=== PATIENT | female | born 1940 | race Caucasian/White ===

== ENCOUNTER 2018-08-05 06:22 | Inpatient (IN) | payer MEDICARE, OTHER ==
[2018-08-05] MEDS ORDERED: Lidocaine 4% (Laryng-O-Jet) Kit MM ONE (07:16)
[2018-08-05] MEDS ORDERED: Rocuronium 10 mg/ml (5 ml) ONE (07:16)
[2018-08-05] MEDS ORDERED: Lidocaine 1% 5ml Abboject ONE (07:16)
[2018-08-05] MEDS ORDERED: Neostigmine 1:1000 (1 mg/ml) Inj ONE (07:16)
[2018-08-05] MEDS ORDERED: Succinylcholine Chloride 20 mg/ml Syr (5 ml) IV ONE (07:16)
[2018-08-05] MEDS ORDERED: Midazolam 2 MG/2 ML VIAL ONE (07:16)
--- NOTE | 2018-08-05 07:21 | CP.PCM.HP ---
<Pearl Abraham - Last Filed: 08/05/18 07:56> History of Present Illness - History of Present Illness History of Present Illness: CC: Right knee pain 78 year old female patient, with PMHx of DM, HTN, HLD, osteoporosis seen and evaluated in [facility] for L knee DJD. Patient is going to OR today with Dr. Velasco for right total knee replacement. Patient states that she has had knee pain for several years, bilaterally. However, more recently her pain has increased significantly to the right knee causing her pain with ambulation and going up and down the stairs. She has remained NPO since last night and admits stopping her ASA two days ago. Denies nausea/vomiting/fever/shortness of breath/chest pain. PMD: Bakari Seals MD PMHx: DM, HTN, HLD, osteoporosis PSHx: L cataract surgery FHx: Father: CAD, DM, HTN SHx: Denies tobacco use, denies alcohol use ALL: NKDA Present on Admission - Present on Admission Any Indicators Present on Admission: No History of DVT/PE: No Review of Systems - Constitutional Constitutional: As Per HPI. absent: Chills, Headache - EENT Eyes: As Per HPI - Cardiovascular Cardiovascular: As Per HPI. absent: Chest Pain Additional comments: mild pitting edema to b/l lower extremities - Respiratory Respiratory: As Per HPI. absent: Cough, Dyspnea - Gastrointestinal Gastrointestinal: absent: Abdominal Pain, Nausea, Vomiting - Musculoskeletal Musculoskeletal: Joint Swelling, Limited Range of Motion, Stiffness Additional comments: Pain with ambulation of b/l knees - Integumentary Integumentary: As Per HPI - Neurological Neurological: As Per HPI - Hematologic/Lymphatic Hematologic: absent: Easy Bleeding, Easy Bruising Past Patient History - Past Medical History & Family History Past Medical History?: Yes - Past Social History Smoking Status: Never Smoked Alcohol: None - CARDIAC Hx Cardiac Disorders: Yes Hx Hypercholesterolemia: Yes Hx Hypertension: Yes - PULMONARY Hx Respiratory Disorders: No - NEUROLOGICAL Hx Neurological Disorder: No - HEENT Hx HEENT Problems: Yes Hx Cataracts: Yes (L eye) - ENDOCRINE/METABOLIC Hx Endocrine Disorders: Yes Hx Diabetes Mellitus Type 2: Yes - HEMATOLOGICAL/ONCOLOGICAL Hx Blood Transfusions: No - MUSCULOSKELETAL/RHEUMATOLOGICAL Hx Musculoskeletal Disorders: Yes Hx Arthritis: Yes Hx Falls: No - GASTROINTESTINAL Hx Gastrointestinal Disorders: No - GENITOURINARY/GYNECOLOGICAL Hx Genitourinary Disorders: No - PSYCHIATRIC Hx Emotional Abuse: No Hx Physical Abuse: No - SURGICAL HISTORY Hx Surgeries: Yes Hx Cataract Extraction: Yes (L eye) - ANESTHESIA Hx Anesthesia: Yes Hx Anesthesia Reactions: No Hx Malignant Hyperthermia: No Has any member of the family had a problem w/ anesthesia?: No Meds Allergies/Adverse Reactions: Allergies Allergy/AdvReac Type Severity Reaction Status Date / Time No Known Allergies Allergy Verified 08/05/18 06:40 Physical Exam - Constitutional Appears: Non-toxic, No Acute Distress - Head Exam Head Exam: ATRAUMATIC, NORMOCEPHALIC - Eye Exam Eye Exam: Normal appearance Pupil Exam: NORMAL ACCOMODATION - ENT Exam ENT Exam: Mucous Membranes Moist - Respiratory Exam Respiratory Exam: Clear to Auscultation Bilateral, NORMAL BREATHING PATTERN - Cardiovascular Exam Cardiovascular Exam: REGULAR RHYTHM - GI/Abdominal Exam GI & Abdominal Exam: Normal Bowel Sounds, Soft - Extremities Exam Additional comments: Pain with palpation of R knee Pain with AROM and PROM of knees b/l - Back Exam Back exam: NORMAL INSPECTION - Neurological Exam Neurological exam: Alert, Oriented x3 - Psychiatric Exam Psychiatric exam: Normal Affect, Normal Mood - Skin Skin Exam: Warm Results - Vital Signs Recent Vital Signs: Last Vital Signs Temp 97.8 F 08/05/18 06:56 Pulse 72 08/05/18 07:07 Resp 18 08/05/18 06:56 BP 158/88 H 08/05/18 06:56 Pulse Ox 99 08/05/18 06:56 - Labs Result Diagrams: 08/05/18 07:20 Assessment & Plan - Assessment and Plan (Free Text) Assessment: 78 year old female patient, with PMHx of DM, HTN, HLD, osteoporosis seen and evaluated in [facility] for L total knee replacement with Dr. Velasco Plan: 1. R knee osteoarthritis - Patient plan for OR today with Dr. Velasco for R TKR - Patient is medically optimized for surgery - Medical clearance from PMD in chart- CBC, CXR, EKG reviewed - NPO status confirmed - PT consult 2. DMII - Chronic - ACHS - Sliding scale 3. HTN - Chronic - C/w home meds after surgery 4. HLD - Chronic 5. DVT prophylaxis - SCDs - Date & Time Date: 08/05/18 Time: 07:42 <Chika Palmer - Last Filed: 08/05/18 15:06> Results - Vital Signs Recent Vital Signs: Last Vital Signs Temp 97.4 F L 08/05/18 13:50 Pulse 84 08/05/18 13:50 Resp 17 08/05/18 13:50 BP 116/77 08/05/18 13:50 Pulse Ox 100 08/05/18 13:50 - Labs Result Diagrams: 08/05/18 07:20 Labs: Laboratory Results - last 24 hr 08/05/18 08/05/18 08/05/18 07:15 07:20 07:55 WBC 6.3 RBC 4.43 Hgb 13.0 Hct 38.9 MCV 88.0 MCH 29.3 MCHC 33.3 RDW 13.5 Plt Count 269 MPV 9.6 Neut % (Auto) 65.9 Lymph % (Auto) 24.3 Sargent % (Auto) 7.7 Eos % (Auto) 1.4 Baso % (Auto) 0.7 Neut # (Auto) 4.1 Lymph # (Auto) 1.5 Sargent # (Auto) 0.5 Eos # (Auto) 0.1 Baso # (Auto) 0.0 POC Glucose (mg/dL) Blood Type O POSITIVE Blood Type Confirm O POSITIVE Antibody Screen Negative Crossmatch See Detail BBK History Checked No verified bt 08/05/18 11:57 WBC RBC Hgb Hct MCV MCH MCHC RDW Plt Count MPV Neut % (Auto) Lymph % (Auto) Sargent % (Auto) Eos % (Auto) Baso % (Auto) Neut # (Auto) Lymph # (Auto) Sargent # (Auto) Eos # (Auto) Baso # (Auto) POC Glucose (mg/dL) 139 H Blood Type Blood Type Confirm Antibody Screen Crossmatch BBK History Checked Attending/Attestation - Attestation I have personally seen and examined this patient.: Yes I have fully participated in the care of the patient.: Yes I have reviewed all pertinent clinical information: Yes Notes (Text): Severe Primary Osteoarthritis Right Knee, failed conservative management DM type II HTN - plan for TKR by Dr Velasco - pre op eval done by pt's PMD and pt optimized for the surgery -cont home DM and HTN meds post op -DVT proph - PT/OT consult post op
[2018-08-05] MEDS ORDERED: Bupivacaine 0.25%-Epinephrine 1:200,000 (30 ml) Inj ONE (07:22)
--- NOTE | 2018-08-05 07:44 | CP.PCM.CON ---
History of Present Illness - History of Present Illness History of Present Illness: Orthopedic consultation Dr. Velasco 78F complains of right knee pain due to DJD failed conservative mgmt and elected for TKR. PMH: HTN, DM, chol PSH: Left eye surgery NKDA no hx CAD, CVA, seizure, stents, DVT, PE Review of Systems - Review of Systems All systems: reviewed and no additional remarkable complaints except - Musculoskeletal Musculoskeletal: As Per HPI Past Patient History - Past Medical History & Family History Past Medical History?: Yes Past Family History: Reviewed and not pertinent - Past Social History Smoking Status: Never Smoked - CARDIAC Hx Cardiac Disorders: Yes Hx Hypercholesterolemia: Yes Hx Hypertension: Yes - PULMONARY Hx Respiratory Disorders: No - NEUROLOGICAL Hx Neurological Disorder: No - HEENT Hx HEENT Problems: Yes Hx Cataracts: Yes (L eye) - ENDOCRINE/METABOLIC Hx Endocrine Disorders: Yes Hx Diabetes Mellitus Type 2: Yes - HEMATOLOGICAL/ONCOLOGICAL Hx Blood Transfusions: No - MUSCULOSKELETAL/RHEUMATOLOGICAL Hx Musculoskeletal Disorders: Yes Hx Arthritis: Yes Hx Falls: No - GASTROINTESTINAL Hx Gastrointestinal Disorders: No - GENITOURINARY/GYNECOLOGICAL Hx Genitourinary Disorders: No - PSYCHIATRIC Hx Emotional Abuse: No Hx Physical Abuse: No - SURGICAL HISTORY Hx Surgeries: Yes Hx Cataract Extraction: Yes (L eye) - ANESTHESIA Hx Anesthesia: Yes Hx Anesthesia Reactions: No Hx Malignant Hyperthermia: No Has any member of the family had a problem w/ anesthesia?: No Meds Allergies/Adverse Reactions: Allergies Allergy/AdvReac Type Severity Reaction Status Date / Time No Known Allergies Allergy Verified 08/05/18 06:40 Physical Exam - Constitutional Appears: Well, No Acute Distress - Head Exam Additional comments: vitiligo noted widespread - Respiratory Exam Respiratory Exam: NORMAL BREATHING PATTERN - Cardiovascular Exam Additional comments: medical h&P on chart, reviewed - Expanded Lower Extremities Exam Right Knee exam: tenderness, normal inspection (mild effusion, no erythema, calves soft NT neg homans +DP/PT pulses) Results - Vital Signs Recent Vital Signs: Last Vital Signs Temp 97.8 F 08/05/18 06:56 Pulse 72 08/05/18 07:07 Resp 18 08/05/18 06:56 BP 158/88 H 08/05/18 06:56 Pulse Ox 99 08/05/18 06:56 - Impressions Impression: labs on chart, reviewed Assessment & Plan (1) Primary osteoarthritis of right knee Assessment and Plan: NPO T&S Status: Acute (2) HTN (hypertension) Assessment and Plan: cont home meds Status: Chronic (3) Diabetes mellitus Assessment and Plan: accucheck, cont home meds Status: Chronic
[2018-08-05] MEDS ORDERED: Glucagon Recombinant 1 mg Inj IM PRN (07:47)
[2018-08-05] MEDS ORDERED: Dextrose 50% SYRINGE Inj (50 ml) IV PRN (07:47)
[2018-08-05 07:48] LABS: BASO % 0.7 % (0.0-2.0); EOS # 0.1 K/uL (0.0-0.7); EOS % 1.4 % (0.0-4.0); LYMPH # 1.5 K/uL (1.0-4.3); LYMPH % 24.3 % (20.0-40.0); MEAN CORPUSCULAR HEMOGLOBIN 29.3 pg (27.0-31.0); MEAN CORPUSCULAR HGB CONC 33.3 g/dL (33.0-37.0); MEAN PLATELET VOLUME 9.6 fl (7.2-11.7); MONO # 0.5 K/uL (0.0-0.8); MONO % 7.7 % (0.0-10.0); NEUT # 4.1 K/uL (1.8-7.0); NEUT % 65.9 % (50.0-75.0); NRBC % 0.1 % (0.0-0.0); RBC 4.43 Mil/uL (3.80-5.20); RED CELL DISTRIBUTION WIDTH 13.5 % (11.5-14.5); WHITE BLOOD COUNT 6.3 K/uL (4.8-10.8)
[2018-08-05] MEDS ORDERED: Morphine 4 MG/ML VIAL IVP PRN (07:53)
[2018-08-05] MEDS ORDERED: Bisacodyl 5mg EC Tab PO PRN (07:53)
[2018-08-05] MEDS ORDERED: Tranexamic Acid 1,000 MG in Sodium Chloride 0.9% 100 ML IVPB ONE (08:00)
[2018-08-05] MEDS ORDERED: Absorbable Gelatin Sponge Size 12-7 ONE (08:19)
[2018-08-05] MEDS ORDERED: Bacitracin Ointment 30 GM TUBE ONE (08:19)
[2018-08-05] MEDS ORDERED: Thrombin Topical 5,000 Int Units Spray Kit ONE (08:19)
[2018-08-05] MEDS ORDERED: Ropivacaine 0.5% 30ML IV ONE (08:44)
[2018-08-05] MEDS ORDERED: Propofol 10 mg/ml Inj (20 ML) ONE (08:46)
[2018-08-05] MEDS ORDERED: Tranexamic Acid 100 mg/ml IV ONE (09:25)
[2018-08-05] MEDS ORDERED: ePHEDrine 50 mg/ml Inj ONE (09:47)
--- NOTE | 2018-08-05 10:07 | PCM.ANESB3 ---
Femoral Nerve Block - Femoral Nerve Block Date of Procedure: 08/05/18 Anesthesiologist: Cam Gaona Pre-Procedure Diagnosis: Right knee arthritis Post-Procedure Diagnosis: Same Procedure Performed: Femoral Nerve Block Right - Procedure Femoral Nerve Block: The procedure was explained to the patient that it is for the post-operative pain management. Consent was obtained after a thorough discussion with the patient regarding the benefits and possible complications of local anesthetic block of the femoral nerve at the inguinal crease area. The patient was brought to the operating room and standard monitors were applied. Time-out was held with the circulating nurse to confirm the correct surgery and the appropriate block. After inducing general endotracheal anesthesia, patient was placed in supine position with fully extended lower extremities and the ___Right groin exposed. The femoral artery was then carefully palpated. The ultrasound transducer was then applied to this area in the transverse plane and the femoral nerve was visualized lateral to the femoral artery and underneath the fascia iliaca. After thorough identification, the inguinal crease area was prepped with Chloraprep three times. At this point, a #22 gauge Stimuplex 2-inch needle was inserted immediately lateral to the femoral artery pulse at the inguinal crease and advanced perpendicularly. The needle was inserted to the ultrasound transducer in-plane towards the femoral nerve in a [id number] direction. Needle advancement was performed carefully under direct ultrasound visualization. After negative aspiration, __5___cc of __0.25___% ____bupivacaine with [id number] epinephrine was injected and this was followed with __15____ cc of the same local anesthetic. Under ultrasound guidance the local anesthetics were observed spreading below fascia iliaca and around the femoral nerve. The needle was removed intact and sterile dressing was applied. The patient had stable vital signs, was conscious and in no apparent distress. The patient tolerated the femoral nerve block well with stable vital signs and was prepared for subsequent surgery.
--- NOTE | 2018-08-05 10:08 | PCM.ANESB2 ---
Popliteal Nerve Block - Popliteal Nerve Block Date of Procedure: 08/05/18 Anesthesiologist: Cam Gaona Pre-Procedure Diagnosis: Right knee arthritis Post-Procedure Diagnosis: Same Procedure Performed: Popliteal Nerve Block Right - Procedure Popliteal Nerve Block: This procedure was explained to the patient that it is for post-operative pain management. Consent was obtained after a thorough discussion with the patient regarding the benefits and possible complications of local anesthetic block of the sciatic nerve at the popliteal level. The patient was brought to the opera tin room and standard monitors are applied. Time-out was held with the circulating nurse to confirm the correct surgery and the appropriate block. After inducing general endotracheal anesthesia, patient's operative leg was gently raised and supported and the groove in between the biceps femoris and vastus lateralis muscles was carefully palpated. The skin approximately 8cm above the popliteal crease was then marked. The ultrasound transducer was then applied to the posterior thigh approximately 8cm above the popliteal crease in the transverse plane and the sciatic nerve before its division was visualized lateral to the popliteal artery and in between the bicep femoris and semimembranosus/semitendinosus muscles. After identification, the lateral portion of the thigh was prepped with Chloraprep solution three times. At this point, a # 21 gauge Stimuplex insulated 4 inch needle was inserted into pre-marked area and advanced in a perpendicular direction. The needle was inserted above the ultrasound transducer in-plane towards the sciatic nerve in a [id number] direction. Needle advancement was performed carefully under direct ultrasound visualization. After repeated negative aspiration, __20___cc of _0.25__ % bupivacaine with [id number] epinephrine was injected in 5cc aliquots. Under ultrasound guidance the local anesthetics were observed surrounding sciatic nerve . The needle was removed intact and sterile dressing was applied. The patient tolerated the popliteal nerve block well with stable vital signs and was subsequently prepared for the surgery.
[2018-08-05] MEDS ORDERED: Bacitracin OINT 15GM TOP ONE (10:26)
[2018-08-05] MEDS ORDERED: Esmolol 100 mg/10ml Inj IV ONE (11:27)
--- NOTE | 2018-08-05 11:41 | PCM.SURG1 ---
Surgeon's Initial Post Op Note - Surgeon's Notes Surgeon: Krista Manufacturing Quality Manager: 1st assist Mary Lou Curry PA-C/ 2nd assist JC Fregoso Type of Anesthesia: General Endo Anesthesia Administered By: DR Anna Basilio Pre-Operative Diagnosis: TricopmartmentalO/A R knee. bicomaprtmental synovitis ( anterior and posterior)\. posterior mcapsular contracture. lateral patella cointractuire Operative Findings: as above Post-Operative Diagnosis: as above Operation Performed: R TKLR. p[osterior capsular release. lateralpatgella release. anterior and posterior synovitis Specimen/Specimens Removed: synvoium/cartilage/bone Estimated Blood Loss: EBL {In ML}: 90 Blood Products Given: N/A Drains Used: Hemovac Post-Op Condition: Fair Date of Surgery/Procedure: 08/05/18 Time of Surgery/Procedure: 09:45 (time in room/anaesthesia indcution time 8:45)
[2018-08-05] MEDS ORDERED: HYDROmorphone 0.5 mg/0.5 ml ISec IVP PRN (11:56)
[2018-08-05] MEDS: Sodium Chloride 0.9% 1,000 ML IV SCH ×2 (13:52→21:00)
--- NOTE | 2018-08-05 16:41 | RAD ---
Date of service: 08/05/2018 PROCEDURE: Right Knee Radiographs. HISTORY: s/p R TKA COMPARISON: None. FINDINGS: BONES: Status post total knee replacement. No acute fracture. JOINTS: As above JOINT EFFUSION: Postoperative changes in anterior soft tissues. Surgical yordy in the anterior midline soft tissues. Surgical drain present in the suprapatellar region. OTHER FINDINGS: None. IMPRESSION: Status post right total knee replacement.
[2018-08-05] MEDS: Insulin Regular 100 units/ml SC SCH ×3 (16:54→22:18)
[2018-08-05] MEDS: ceFAZolin 2 GM in Sodium Chloride 0.9% 100 ML IVPB SCH (19:36)
[2018-08-06] MEDS: ceFAZolin 2 GM in Sodium Chloride 0.9% 100 ML IVPB SCH (00:39)
[2018-08-06 06:34] LABS: HEMOGLOBIN 11.7 g/dL (12.0-16.0); MEAN CELL VOLUME 88.5 fl (81.0-99.0); MEAN CORPUSCULAR HEMOGLOBIN 29.7 pg (27.0-31.0); MEAN CORPUSCULAR HGB CONC 33.6 g/dL (33.0-37.0); RBC 3.94 Mil/uL (3.80-5.20); RED CELL DISTRIBUTION WIDTH 13.4 % (11.5-14.5); WHITE BLOOD COUNT 9.7 K/uL (4.8-10.8)
[2018-08-06 06:47] LABS: BLOOD UREA NITROGEN 11 mg/dl (7-17); CALCIUM 8.6 mg/dL (8.4-10.2); GFR NON-AFRICAN AMERICAN > 60
--- NOTE | 2018-08-06 09:25 | CP.PCM.PN ---
Subjective - Date & Time of Evaluation Date of Evaluation: 08/06/18 Time of Evaluation: 09:22 - Subjective Subjective: Patient complaining of severe pain in her knee, even with COMMUNITY SERVICES COORDINATOR. Denies CP/SOB/dizziness/numbness/tingling. Objective - Vital Signs/Intake and Output Vital Signs (last 24 hours): Temp Pulse Resp BP Pulse Ox 97.4 F L 75 20 131/72 95 08/06/18 08:07 08/06/18 08:07 08/06/18 08:07 08/06/18 08:07 08/06/18 08:07 Intake and Output: 08/06/18 08/06/18 06:59 18:59 Intake Total 1110 Output Total 5 Balance 1105 - Medications Medications: Current Medications Acetaminophen (Tylenol 325mg Tab) 650 mg PO Q4 PRN PRN Reason: Fever >100.4 F Bisacodyl (Dulcolax) 10 mg PO HS PRN PRN Reason: Constipation Dextrose (Dextrose 50% Inj) 0 ml IV STAT PRN; Protocol PRN Reason: Hypoglycemia Protocol Dextrose (Glutose 15) 0 gm PO ONCE PRN; Protocol PRN Reason: Hypoglycemia Protocol Docusate Sodium (Colace) 100 mg PO BID [facility] Last Admin: 08/05/18 19:18 Dose: 100 mg Enoxaparin Sodium (Lovenox) 40 mg SC DAILY [facility]; Protocol Glucagon (Glucagen Diagnostic Kit) 0 mg IM STAT PRN; Protocol PRN Reason: Hypoglycemia Protocol Hydromorphone HCl (Dilaudid 0.2 Mg/Ml Combination Window Installer) 6 mg IV PRN PRN; Protocol PRN Reason: Pain, severe (8-10) Last Admin: 08/05/18 13:20 Dose: 0 mg Insulin Human Regular (Humulin R) 0 units SC [facility]; Protocol Last Admin: 08/05/18 22:18 Dose: Not Given Ketorolac Tromethamine (Toradol) 30 mg IVP Q6 [facility] Stop: 08/08/18 04:01 Metformin HCl (Glucophage) 500 mg PO BID [facility] Morphine Sulfate (Morphine) 2 mg IVP Q4 PRN PRN Reason: Pain, severe (8-10) Ondansetron HCl (Zofran Inj) 4 mg IVP Q6 PRN PRN Reason: Nausea/Vomiting Oxycodone HCl (Oxycodone Immediate Release Tab) 5 mg PO Q4H PRN PRN Reason: Pain, moderate (4-7) Pravastatin Sodium (Pravachol) 20 mg PO HS [facility] - Labs Labs: 08/06/18 05:50 08/06/18 05:50 - Extremities Exam Additional comments: hemovac 40 overnight, removed +ROM ankle/toes, sensation intact +CP/PT pulses, calves soft NT neghomans Assessment and Plan (1) Primary osteoarthritis of right knee Assessment & Plan: PT/OT wean COMMUNITY SERVICES COORDINATOR toradol around the clock, tylenol standing d/c'd VTE proph d/c planning d/w Dr. Lowe, agrees with above Status: Acute (2) HTN (hypertension) Status: Chronic (3) Diabetes mellitus Status: Chronic (4) Acute blood loss anemia Status: Acute
--- NOTE | 2018-08-06 10:38 | CP.PCM.CON ---
History of Present Illness - History of Present Illness History of Present Illness: THE PATIENT IS A 78 YEAR OLD FEMALE WHO HAD A RIGHT TKR FOR OA YESTERDAY BY DR CHEEK AND I HAVE BEEN ASKED TO SEE HER. SHE ALSO HAS A HISTORY OF HYPERTENSION, HYPERLIPIDEMIA AND TYPE 2 DM. SHE DENIES ANY HISTORY OF CAD, CHEST PAIN OR SOB. NOTE: THE PATIENT AND SON DENIES THAT SHE EVER HAD ANY STENT INSERTION OF ANY KIND. Past Patient History - Past Medical History & Family History Past Medical History?: Yes Past Family History: Reviewed and not pertinent - Past Social History Smoking Status: Never Smoked - CARDIAC Hx Cardiac Disorders: Yes Hx Hypercholesterolemia: Yes Hx Hypertension: Yes - PULMONARY Hx Respiratory Disorders: No - NEUROLOGICAL Hx Neurological Disorder: No - HEENT Hx HEENT Problems: Yes Hx Cataracts: Yes (L eye) - ENDOCRINE/METABOLIC Hx Endocrine Disorders: Yes Hx Diabetes Mellitus Type 2: Yes - HEMATOLOGICAL/ONCOLOGICAL Hx Blood Transfusions: No - MUSCULOSKELETAL/RHEUMATOLOGICAL Hx Musculoskeletal Disorders: Yes Hx Arthritis: Yes Hx Falls: No - GASTROINTESTINAL Hx Gastrointestinal Disorders: No - GENITOURINARY/GYNECOLOGICAL Hx Genitourinary Disorders: No - PSYCHIATRIC Hx Emotional Abuse: No Hx Physical Abuse: No - SURGICAL HISTORY Hx Surgeries: Yes Hx Cataract Extraction: Yes (L eye) - ANESTHESIA Hx Anesthesia: Yes Hx Anesthesia Reactions: No Hx Malignant Hyperthermia: No Has any member of the family had a problem w/ anesthesia?: No Meds Allergies/Adverse Reactions: Allergies Allergy/AdvReac Type Severity Reaction Status Date / Time No Known Allergies Allergy Verified 08/05/18 06:40 - Medications Medications: Current Medications Acetaminophen (Tylenol 325mg Tab) 650 mg PO Q4 PRN PRN Reason: Fever >100.4 F Bisacodyl (Dulcolax) 10 mg PO HS PRN PRN Reason: Constipation Dextrose (Dextrose 50% Inj) 0 ml IV STAT PRN; Protocol PRN Reason: Hypoglycemia Protocol Dextrose (Glutose 15) 0 gm PO ONCE PRN; Protocol PRN Reason: Hypoglycemia Protocol Docusate Sodium (Colace) 100 mg PO BID [facility] Last Admin: 08/05/18 19:18 Dose: 100 mg Enoxaparin Sodium (Lovenox) 40 mg SC DAILY [facility]; Protocol Glucagon (Glucagen Diagnostic Kit) 0 mg IM STAT PRN; Protocol PRN Reason: Hypoglycemia Protocol Hydromorphone HCl (Dilaudid 0.2 Mg/Ml Drawbench Operator) 6 mg IV PRN PRN; Protocol PRN Reason: Pain, severe (8-10) Last Admin: 08/05/18 13:20 Dose: 0 mg Insulin Human Regular (Humulin R) 0 units SC [facility]; Protocol Last Admin: 08/05/18 22:18 Dose: Not Given Ketorolac Tromethamine (Toradol) 30 mg IVP Q6 [facility] Stop: 08/08/18 04:01 Metformin HCl (Glucophage) 500 mg PO BID [facility] Morphine Sulfate (Morphine) 2 mg IVP Q4 PRN PRN Reason: Pain, severe (8-10) Ondansetron HCl (Zofran Inj) 4 mg IVP Q6 PRN PRN Reason: Nausea/Vomiting Oxycodone HCl (Oxycodone Immediate Release Tab) 5 mg PO Q4H PRN PRN Reason: Pain, moderate (4-7) Pravastatin Sodium (Pravachol) 20 mg PO HS [facility] Physical Exam - Respiratory Exam Respiratory Exam: Clear to Auscultation Bilateral - Cardiovascular Exam Cardiovascular Exam: REGULAR RHYTHM, +S1, +S2 - Additional Findings Additional findings: PAT EKG SHOWS NSR OR NOTES REVIEWED Results - Vital Signs Recent Vital Signs: Last Vital Signs Temp 97.4 F L 08/06/18 08:07 Pulse 75 08/06/18 08:07 Resp 20 08/06/18 08:07 BP 131/72 08/06/18 08:07 Pulse Ox 95 08/06/18 08:07 - Labs Result Diagrams: 08/07/18 06:50 08/06/18 05:50 Labs: Laboratory Results - last 24 hr 08/05/18 08/05/18 08/05/18 07:24 11:57 15:40 WBC RBC Hgb Hct MCV MCH MCHC RDW Plt Count Sodium Potassium Chloride Carbon Dioxide Anion Gap BUN Creatinine Est GFR ( Amer) Est GFR (Non-Af Amer) POC Glucose (mg/dL) 121 H 139 H 103 Random Glucose Calcium 08/05/18 08/05/18 08/06/18 16:53 21:33 05:01 WBC RBC Hgb Hct MCV MCH MCHC RDW Plt Count Sodium Potassium Chloride Carbon Dioxide Anion Gap BUN Creatinine Est GFR ( Amer) Est GFR (Non-Af Amer) POC Glucose (mg/dL) 99 139 H 145 H Random Glucose Calcium 08/06/18 08/06/18 05:50 05:50 WBC 9.7 D RBC 3.94 Hgb 11.7 L Hct 34.9 MCV 88.5 MCH 29.7 MCHC 33.6 RDW 13.4 Plt Count 251 Sodium 135 Potassium 3.9 Chloride 96 L Carbon Dioxide 27 Anion Gap 16 BUN 11 Creatinine 0.6 L Est GFR ( Amer) > 60 Est GFR (Non-Af Amer) > 60 POC Glucose (mg/dL) Random Glucose 157 H Calcium 8.6 Assessment & Plan - Assessment and Plan (Free Text) Assessment: RIGHT TKR HYPERTENSION HYPERLIPIDEMIA DM Plan: CONTINUE LOVENOX, METFORMEN AND PRAVACHOL
[2018-08-06] MEDS: Insulin Regular 100 units/ml SC SCH ×4 (10:42→21:56)
--- NOTE | 2018-08-06 12:14 | CP.PCM.PN ---
<Pearl Abraham - Last Filed: 08/06/18 13:20> Subjective - Date & Time of Evaluation Date of Evaluation: 08/06/18 Time of Evaluation: 12:14 - Subjective Subjective: Patient seen and evaluated this morning. Patient resting comfortably and in NAD. Patient reports 5/10 pain to the R knee at this time, however pain well controlled with pain medications. No acute events overnight. Denies nausea/vomiting/fever/shortness of breath/chest pain. Objective - Vital Signs/Intake and Output Vital Signs (last 24 hours): Temp Pulse Resp BP Pulse Ox 97.4 F L 75 20 131/72 95 08/06/18 08:07 08/06/18 08:07 08/06/18 08:07 08/06/18 08:07 08/06/18 08:07 Intake and Output: 08/06/18 08/06/18 06:59 18:59 Intake Total 1110 Output Total 5 Balance 1105 - Medications Medications: Current Medications Acetaminophen (Tylenol 325mg Tab) 650 mg PO Q4 PRN PRN Reason: Fever >100.4 F Bisacodyl (Dulcolax) 10 mg PO HS PRN PRN Reason: Constipation Dextrose (Dextrose 50% Inj) 0 ml IV STAT PRN; Protocol PRN Reason: Hypoglycemia Protocol Dextrose (Glutose 15) 0 gm PO ONCE PRN; Protocol PRN Reason: Hypoglycemia Protocol Docusate Sodium (Colace) 100 mg PO BID [facility] Last Admin: 08/06/18 10:40 Dose: 100 mg Enoxaparin Sodium (Lovenox) 40 mg SC DAILY [facility]; Protocol Glucagon (Glucagen Diagnostic Kit) 0 mg IM STAT PRN; Protocol PRN Reason: Hypoglycemia Protocol Hydromorphone HCl (Dilaudid 0.2 Mg/Ml Special Needs Tutor) 6 mg IV PRN PRN; Protocol PRN Reason: Pain, severe (8-10) Last Admin: 08/05/18 13:20 Dose: 0 mg Insulin Human Regular (Humulin R) 0 units SC [facility]; Protocol Last Admin: 08/06/18 10:42 Dose: Not Given Ketorolac Tromethamine (Toradol) 30 mg IVP Q6 [facility] Stop: 08/08/18 04:01 Last Admin: 08/06/18 10:50 Dose: 30 mg Metformin HCl (Glucophage) 500 mg PO BID [facility] Last Admin: 08/06/18 10:41 Dose: 500 mg Morphine Sulfate (Morphine) 2 mg IVP Q4 PRN PRN Reason: Pain, severe (8-10) Ondansetron HCl (Zofran Inj) 4 mg IVP Q6 PRN PRN Reason: Nausea/Vomiting Oxycodone HCl (Oxycodone Immediate Release Tab) 5 mg PO Q4H PRN PRN Reason: Pain, moderate (4-7) Pravastatin Sodium (Pravachol) 20 mg PO HS [facility] - Labs Labs: 08/06/18 05:50 08/06/18 05:50 - Constitutional Appears: Non-toxic, No Acute Distress - Head Exam Head Exam: ATRAUMATIC, NORMOCEPHALIC - Eye Exam Eye Exam: Normal appearance - Respiratory Exam Respiratory Exam: Clear to Ausculation Bilateral, NORMAL BREATHING PATTERN - Cardiovascular Exam Cardiovascular Exam: REGULAR RHYTHM - GI/Abdominal Exam GI & Abdominal Exam: Soft, Normal Bowel Sounds - Extremities Exam Additional comments: R knee immobilizer in place - Back Exam Back Exam: NORMAL INSPECTION - Neurological Exam Neurological Exam: Alert, Awake, Oriented x3 Assessment and Plan - Assessment and Plan (Free Text) Assessment: 78 year old female patient, with PMHx of DM, HTN, HLD, osteoporosis admitted for L total knee replacement with Dr. Velasco Plan: 1. R knee osteoarthritis - POD#[address] Velasco - C/w pain management, percocet 5/325 - C/w incentive spirometer - PT/OT consult, reccs appreciated 2. DMII - Chronic - ACHS - Sliding scale 3. HTN - Chronic - C/w home meds after physical therapy 4. HLD - Chronic - C/w home med, pravastatin 5. DVT prophylaxis - SCDs - Lovenox 40mg SC 6. Code Status - Full code - Surrogate decision maker, son Nael <PalmerChika - Last Filed: 08/06/18 16:15> Objective - Vital Signs/Intake and Output Vital Signs (last 24 hours): Temp Pulse Resp BP Pulse Ox 97.4 F L 74 20 131/72 94 L 08/06/18 08:07 08/06/18 13:30 08/06/18 08:07 08/06/18 08:07 08/06/18 13:30 Intake and Output: 08/06/18 08/06/18 06:59 18:59 Intake Total 1110 Output Total 5 Balance 1105 - Medications Medications: Current Medications Acetaminophen (Tylenol 325mg Tab) 650 mg PO Q4 PRN PRN Reason: Fever >100.4 F Bisacodyl (Dulcolax) 10 mg PO HS PRN PRN Reason: Constipation Dextrose (Dextrose 50% Inj) 0 ml IV STAT PRN; Protocol PRN Reason: Hypoglycemia Protocol Dextrose (Glutose 15) 0 gm PO ONCE PRN; Protocol PRN Reason: Hypoglycemia Protocol Docusate Sodium (Colace) 100 mg PO BID [facility] Last Admin: 08/06/18 10:40 Dose: 100 mg Enoxaparin Sodium (Lovenox) 40 mg SC DAILY [facility]; Protocol Glucagon (Glucagen Diagnostic Kit) 0 mg IM STAT PRN; Protocol PRN Reason: Hypoglycemia Protocol Sodium Chloride (Sodium Chloride 0.9%) 250 mls @ 250 mls/hr IV .Q1H [facility] Stop: 08/07/18 12:13 Insulin Human Regular (Humulin R) 0 units SC ACHS [facility]; Protocol Last Admin: 08/06/18 13:28 Dose: 1 unit Ketorolac Tromethamine (Toradol) 30 mg IVP Q6 [facility] Stop: 08/08/18 04:01 Last Admin: 08/06/18 16:08 Dose: 30 mg Losartan Potassium (Cozaar) 100 mg PO DAILY [facility] Metformin HCl (Glucophage) 500 mg PO BID [facility] Last Admin: 08/06/18 10:41 Dose: 500 mg Metoprolol Succinate (Toprol Xl) 25 mg PO DAILY [facility] Morphine Sulfate (Morphine) 2 mg IVP Q4 PRN PRN Reason: Pain, severe (8-10) Ondansetron HCl (Zofran Inj) 4 mg IVP Q6 PRN PRN Reason: Nausea/Vomiting Oxycodone HCl (Oxycodone Immediate Release Tab) 5 mg PO Q4H PRN PRN Reason: Pain, moderate (4-7) Pravastatin Sodium (Pravachol) 20 mg PO HS [facility] - Labs Labs: 08/06/18 05:50 08/06/18 05:50 Attending/Attestation - Attestation I have personally seen and examined this patient.: Yes I have fully participated in the care of the patient.: Yes I have reviewed all pertinent clinical information, including history, physical exam and plan: Yes Notes (Text): Severe Primary Osteoarthritis Right Knee, failed conservative management s/p Right TKR DM type II HTN - Physical and Occupational therapy - SW consulted for placement ( family requesting [facility] in [place]) -Pain mgt -DVT proph w/ Lovenox - cont Metoprolol and Losartan - cont Metformin, Accucheck with coverage
[2018-08-06] MEDS ORDERED: Sodium Chloride 0.9% 250 ML IV SCH (12:15)
--- NOTE | 2018-08-06 13:48 | OP ---
PROCEDURE DATE: 08/05/2018 PREOPERATIVE DIAGNOSIS: Tricompartmental osteoarthritis of the right knee. POSTOPERATIVE DIAGNOSES: 1. Tricompartmental osteoarthritis of the right knee. 2. Synovitis, anterior and posterior. 3. Posterior capsular contracture. 4. Lateral patellar retinacular contracture. SURGEON: Noe Velasco MD STEAM HAMMER OPERATOR: Mary Lou Curry PA-C SECOND MANAGER CONTACT: ROCKY Campbell, certified registered nursing certified surgical first assistant. OPERATIVE FINDINGS: As above. ESTIMATED BLOOD LOSS: Approximately 90 mL. No blood products given. One Hemovac drain. POSTOPERATIVE CONDITION: Stable. TIME OF SURGERY: Time in the room 08:45, incision time 09:45. SPECIMENS REMOVED: Synovium, cartilage, bone. OPERATIVE INDICATION: Shobha Mena is a 78-year-old woman, who presents with severe right knee pain and restricted range of motion. The patient presents with her son. The patient has been treated with conservative management with intra-articular injection, anti-inflammatory medication and therapy. Pros, cons, risks and benefits of surgical approach were discussed. The possibility of mechanical failure, infection, thromboembolic disease, possibility of secondary or tertiary surgery was discussed. The patient could no longer withstand the discomfort. The patient is fully aware of the risks and benefits and informed consent was obtained from the mother in the presence of her son. DESCRIPTION OF PROCEDURE: After having obtained informed consent in the above fashion, after having identified side, site and procedure and a critical pause/time-out, after the satisfactory induction of the anesthetic, the patient identified as Shobha Mena in the supine position with all bony prominences well padded, the right lower extremity was prepped and free draped in the usual fashion for lower extremity surgery. The tourniquet had been applied, but was not yet inflated. After exsanguinating the limb using a 6-inch Esmarch bandage, the tourniquet which had been applied was inflated to 350 mmHg. A straight midline approach was made, 6 inches in extent. Skin incision was carried down through the skin and subcutaneous tissue. Medial arthrotomy was accomplished. The patella was everted. The knee was flexed. Dissection was carried around posteromedially to the direct head of the semimembranosus tendon. Medial and lateral meniscectomies were accomplished. Anterior and posterior cruciate ligaments were excised. The tibia was dislocated anteriorly and the initial osteotomy of the arthroplasty was accomplished on the tibial side. Computer navigation commences. The anterior strut for the [employer] computer navigation accelerometer-based was employed. The offset was determined as well as the sensor application of the accelerometer. The tibia having been exposed, the offset was registered, the medial malleolus was registered and the lateral malleolus was registered. This having been accomplished, the initial osteotomy was accomplished after varus-valgus was set to 0 degrees after computer navigation was employed and 3 degrees posterior slope. Tibial osteotomy was accomplished. Portion of the iliotibial band in the lateral aspect of the tibial plateau was released. This having been accomplished, the anterior synovectomy was accomplished. Anterior and posterior synovectomy were accomplished very carefully. There was found to be a very raging and hypertrophic synovitis. This having been accomplished, the pin was placed above the intercondylar notch. The guide pin and the distal femoral cutting guide were placed. Accelerometer was placed as well as the sensor. The hip center was identified and the distal cut was set to 0 degrees on the varus-valgus axis in 0.5 degrees of flexion. This having been accomplished, the distal cut was set to 9 mm. The distal cut was accomplished. Anterior-posterior sizing is for #4 femoral component. The 4:1 block was placed across the epicondylar axis. Anterior and posterior osteotomies were accomplished as well as the chamfer cuts. This having been accomplished, there was found be a posterior capsular contracture. The lamina claims adjudicator was placed. The posterior capsule was released. At this point, a lateral patellar retinacular release was accomplished as well. Hemostasis controlled with the Aquamant[employer]. This having been accomplished, anterior and posterior synovectomy was accomplished. Attention was turned to the tibia with guidance to rotation of the lateral aspect of the tibial condyle, mid malleolar axis and medial third of the tibial tuberosity. This having been accomplished, the proximal tibia was prepared. The femur was prepared and 10-mm polyethylene was introduced. Flexion/extension gap was measured. Attention was turned to the patella. Patellar girth was registered. The freehand patellar osteotomy was accomplished. The patella was prepared. This having been accomplished and the patellar sizing having been accomplished, the lateral patellar retinacular release was accomplished. Anterior and posterior synovectomy was accomplished. The patella having been prepared, flexion/extension balance was excellent. The patellar balance was excellent. The trochlea is reamed for the femur and the femoral component. At this point in time, the femur, tibia and patella were prepared. The #4 femoral component was cemented. The #3 tibial component was cemented. The #2 patella was cemented and 10 mm polyethylene was introduced. Flexion/extension balance was excellent. The tourniquet was deflated. Hemostasis was controlled. Blood loss was approximately 90 mL. Closures in layers with #1 Ethibond followed by #1 Vicryl, 0 Vicryl, 2-0 Vicryl and yordy for skin over an 8-inch suction Hemovac drain. A lateral patellar retinacular release had been accomplished from inside out to ensure patellar balance. Computer navigation had been accomplished in determining the attitude of the alignment. Reza Delatorre compression dressing and knee immobilizers were applied. Noe Velasco MD
[2018-08-06] MEDS: Pravastatin Sodium 20 MG TAB PO SCH (21:37)
[2018-08-07 08:49] LABS: HEMOGLOBIN 11.4 g/dL (12.0-16.0); MEAN CELL VOLUME 88.2 fl (81.0-99.0); MEAN CORPUSCULAR HEMOGLOBIN 29.6 pg (27.0-31.0); MEAN CORPUSCULAR HGB CONC 33.6 g/dL (33.0-37.0); RBC 3.85 Mil/uL (3.80-5.20); RED CELL DISTRIBUTION WIDTH 13.5 % (11.5-14.5); WHITE BLOOD COUNT 10.9 K/uL (4.8-10.8)
[2018-08-07 09:07] LABS: INR 1.2; PROTHROMBIN TIME 13.7 Seconds (9.8-13.1)
[2018-08-07 10:05] VITALS: BMI 30.5
[2018-08-07] MEDS: Metoprolol Succinate 25 mg XL Tab PO SCH (10:16)
[2018-08-07] MEDS: Insulin Regular 100 units/ml SC SCH ×4 (10:20→22:13)
[2018-08-07] MEDS: Enoxaparin 40 mg Syringe SC SCH (12:04)
--- NOTE | 2018-08-07 12:37 | CP.PCM.PN ---
Subjective - Date & Time of Evaluation Date of Evaluation: 08/07/18 Time of Evaluation: 10:00 - Subjective Subjective: Patient was seen and evaluated during PT . All chart and clinical date viewed.Care resumed She is post op day 2, doing well. Pain is controlled with pain medications. Participating with PT and tolerating CPM machine No acute issues overnight Hemodynamically stabloe, afebrile Objective - Vital Signs/Intake and Output Vital Signs (last 24 hours): Temp Pulse Resp BP Pulse Ox 98.0 F 80 22 155/71 H 93 L 08/07/18 08:05 08/07/18 10:16 08/07/18 08:05 08/07/18 10:16 08/07/18 08:05 Intake and Output: 08/07/18 08/07/18 06:59 18:59 Output Total 200 Balance -200 - Medications Medications: Current Medications Acetaminophen (Tylenol 325mg Tab) 650 mg PO Q4 PRN PRN Reason: Fever >100.4 F Bisacodyl (Dulcolax) 10 mg PO HS PRN PRN Reason: Constipation Dextrose (Dextrose 50% Inj) 0 ml IV STAT PRN; Protocol PRN Reason: Hypoglycemia Protocol Dextrose (Glutose 15) 0 gm PO ONCE PRN; Protocol PRN Reason: Hypoglycemia Protocol Docusate Sodium (Colace) 100 mg PO BID [facility] Last Admin: 08/07/18 10:15 Dose: 100 mg Enoxaparin Sodium (Lovenox) 40 mg SC DAILY [facility]; Protocol Last Admin: 08/07/18 12:04 Dose: 40 mg Glucagon (Glucagen Diagnostic Kit) 0 mg IM STAT PRN; Protocol PRN Reason: Hypoglycemia Protocol Insulin Human Regular (Humulin R) 0 units SC [facility]; Protocol Last Admin: 08/07/18 11:56 Dose: 1 unit Ketorolac Tromethamine (Toradol) 30 mg IVP Q6 [facility] Stop: 08/08/18 04:01 Last Admin: 08/07/18 10:10 Dose: 30 mg Losartan Potassium (Cozaar) 100 mg PO DAILY [facility] Last Admin: 08/07/18 10:16 Dose: 100 mg Metformin HCl (Glucophage) 500 mg PO BID [facility] Last Admin: 08/07/18 10:15 Dose: 500 mg Metoprolol Succinate (Toprol Xl) 25 mg PO DAILY [facility] Last Admin: 08/07/18 10:16 Dose: 25 mg Morphine Sulfate (Morphine) 2 mg IVP Q4 PRN PRN Reason: Pain, severe (8-10) Ondansetron HCl (Zofran Inj) 4 mg IVP Q6 PRN PRN Reason: Nausea/Vomiting Oxycodone HCl (Oxycodone Immediate Release Tab) 5 mg PO Q4H PRN PRN Reason: Pain, moderate (4-7) Pravastatin Sodium (Pravachol) 20 mg PO HS [facility] Last Admin: 08/06/18 21:37 Dose: 20 mg - Labs Labs: 08/07/18 06:50 08/06/18 05:50 PT 13.7 Seconds (9.8-13.1) H 08/07/18 07:30 INR 1.2 08/07/18 07:30 - Constitutional Appears: Non-toxic, No Acute Distress - Head Exam Head Exam: ATRAUMATIC, NORMAL INSPECTION, NORMOCEPHALIC - Eye Exam Eye Exam: EOMI, Normal appearance, PERRL Pupil Exam: NORMAL ACCOMODATION - ENT Exam ENT Exam: Mucous Membranes Moist, Normal Exam - Neck Exam Neck Exam: Full ROM, Normal Inspection - Respiratory Exam Respiratory Exam: Clear to Ausculation Bilateral, NORMAL BREATHING PATTERN. absent: Rales, Rhonchi, Wheezes, Respiratory Distress - Cardiovascular Exam Cardiovascular Exam: REGULAR RHYTHM, RRR, +S1, +S2. absent: JVD - GI/Abdominal Exam GI & Abdominal Exam: Soft, Normal Bowel Sounds. absent: Distended, Guarding, Tenderness, Rebound - Rectal Exam Rectal Exam: Deferred - Extremities Exam Extremities Exam: Full ROM, Normal Capillary Refill, Normal Inspection Additional comments: Right knee dressing and immobilizer in place - Back Exam Back Exam: NORMAL INSPECTION - Neurological Exam Neurological Exam: Alert, Awake, CN II-XII Intact, Oriented x3 - Psychiatric Exam Psychiatric exam: Normal Affect, Normal Mood - Skin Skin Exam: Dry, Intact, Normal Color, Warm Assessment and Plan - Assessment and Plan (Free Text) Assessment: 78 year old female patient, with PMHx of DM, HTN, HLD, osteoporosis admitted for L total knee replacement with Dr. Velasco . She underwent succesfull right TKR. Post op PT consulted and recommenced [facility] At present pacheco is controlled, partricipating with PT and tolerating CPM machine Waiting for [facility] placement 1. s/p right TKR post op Day 2 Pain is controlled Continue Incentive spirometry Lovenox for DVt prophylaxis Continue PT and CPM as per ortho recommendations Waiting for [facility] placement 2. DMII Chronic, controlled Continue Accuchecks, insulin coverage , Diabetic diet On Metformin 3. HTN Chronic, controlled continue metoprolol and Losartan 4. HLD Chronic on pravastatin 5. DVT prophylaxis SCDs Lovenox 40mg SC
[2018-08-07] MEDS: Pravastatin Sodium 20 MG TAB PO SCH (21:22)
[2018-08-08] MEDS: Insulin Regular 100 units/ml SC SCH ×4 (07:09→23:01)
[2018-08-08] MEDS: oxyCODONE 5 mg Immediate Release Tab PO PRN ×2 (09:18→13:36)
[2018-08-08] MEDS: Enoxaparin 40 mg Syringe SC SCH (09:18)
[2018-08-08] MEDS: Metoprolol Succinate 25 mg XL Tab PO SCH (09:19)
--- NOTE | 2018-08-08 10:43 | CP.PCM.PN ---
Subjective - Date & Time of Evaluation Date of Evaluation: 08/08/18 Time of Evaluation: 09:00 - Subjective Subjective: Patient was seen and evaluated bedside . Lying in bed in NAD. Still complains of pain to right knee No acute issues overnight Hemodynamically stable, afebrile Participating with PT and tolerating CPM machine Objective - Vital Signs/Intake and Output Vital Signs (last 24 hours): Temp Pulse Resp BP Pulse Ox 98.5 F 74 19 157/86 H 98 08/08/18 08:45 08/08/18 09:19 08/08/18 08:45 08/08/18 09:19 08/08/18 08:45 - Medications Medications: Current Medications Acetaminophen (Tylenol 325mg Tab) 650 mg PO Q4 PRN PRN Reason: Fever >100.4 F Bisacodyl (Dulcolax) 10 mg PO HS PRN PRN Reason: Constipation Dextrose (Dextrose 50% Inj) 0 ml IV STAT PRN; Protocol PRN Reason: Hypoglycemia Protocol Dextrose (Glutose 15) 0 gm PO ONCE PRN; Protocol PRN Reason: Hypoglycemia Protocol Docusate Sodium (Colace) [address] [facility] Last Admin: 08/08/18 09:13 Dose: 100 mg Enoxaparin Sodium (Lovenox) [address] [facility]; Protocol Last Admin: 08/08/18 09:18 Dose: 40 mg Glucagon (Glucagen Diagnostic Kit) 0 mg IM STAT PRN; Protocol PRN Reason: Hypoglycemia Protocol Insulin Human Regular (Humulin R) [address] [facility]; Protocol Last Admin: 08/08/18 07:09 Dose: Not Given Losartan Potassium (Cozaar) [address] [facility] Last Admin: 08/08/18 09:17 Dose: 100 mg Metformin HCl (Glucophage) [address] [facility] Last Admin: 08/08/18 09:17 Dose: 500 mg Metoprolol Succinate (Toprol Xl) [address] [facility] Last Admin: 08/08/18 09:19 Dose: 25 mg Morphine Sulfate (Morphine) 2 mg IVP Q4 PRN PRN Reason: Pain, severe (8-10) Ondansetron HCl (Zofran Inj) 4 mg IVP Q6 PRN PRN Reason: Nausea/Vomiting Oxycodone HCl (Oxycodone Immediate Release Tab) 5 mg PO Q4H PRN PRN Reason: Pain, moderate (4-7) Last Admin: 08/08/18 09:18 Dose: 5 mg Pravastatin Sodium (Pravachol) 20 mg PO HS [facility] Last Admin: 08/07/18 21:22 Dose: 20 mg - Labs Labs: 08/07/18 06:50 08/06/18 05:50 PT 13.7 Seconds (9.8-13.1) H 08/07/18 07:30 INR 1.2 08/07/18 07:30 Assessment and Plan - Assessment and Plan (Free Text) Assessment: 78 year old female patient, with PMHx of DM, HTN, HLD, osteoporosis admitted for right total knee replacement with Dr. Velasco . She underwent successful right TKR. Post op physical therapy was consulted and recommenced [facility] At present pain is controlled with medications , participating with PT and tolerating CPM machine Waiting for [facility] placement 1. s/p right TKR post op Day 3 Pain is controlled Continue Incentive spirometry Lovenox for DVt prophylaxis Continue PT and CPM as per ortho recommendations Waiting for [facility] placement 2. DMII Chronic, controlled Continue Accuchecks, insulin coverage , Diabetic diet On Metformin 3. HTN Chronic,labile continue metoprolol and Losartan 4. HLD Chronic on pravastatin 5. DVT prophylaxis SCDs Lovenox 40mg SC
--- NOTE | 2018-08-08 15:09 | CP.PCM.PN ---
Subjective - Date & Time of Evaluation Date of Evaluation: 08/08/18 Time of Evaluation: 14:30 - Subjective Subjective: NO CHEST PAIN OR SOB ONLY COMPLAINS OF PAIN AT SURGICAL SITE Objective - Vital Signs/Intake and Output Vital Signs (last 24 hours): Temp Pulse Resp BP Pulse Ox 98.5 F 74 19 157/86 H 98 08/08/18 08:45 08/08/18 09:19 08/08/18 08:45 08/08/18 09:19 08/08/18 08:45 - Medications Medications: Current Medications Acetaminophen (Tylenol 325mg Tab) 650 mg PO Q4 PRN PRN Reason: Fever >100.4 F Bisacodyl (Dulcolax) 10 mg PO HS PRN PRN Reason: Constipation Dextrose (Dextrose 50% Inj) 0 ml IV STAT PRN; Protocol PRN Reason: Hypoglycemia Protocol Dextrose (Glutose 15) 0 gm PO ONCE PRN; Protocol PRN Reason: Hypoglycemia Protocol Docusate Sodium (Colace) 100 mg PO BID [facility] Last Admin: 08/08/18 09:13 Dose: 100 mg Enoxaparin Sodium (Lovenox) 40 mg SC DAILY [facility]; Protocol Last Admin: 08/08/18 09:18 Dose: 40 mg Glucagon (Glucagen Diagnostic Kit) 0 mg IM STAT PRN; Protocol PRN Reason: Hypoglycemia Protocol Insulin Human Regular (Humulin R) 0 units SC [facility]; Protocol Last Admin: 08/08/18 13:36 Dose: 1 unit Losartan Potassium (Cozaar) 100 mg PO DAILY [facility] Last Admin: 08/08/18 09:17 Dose: 100 mg Metformin HCl (Glucophage) 500 mg PO BID [facility] Last Admin: 08/08/18 09:17 Dose: 500 mg Metoprolol Succinate (Toprol Xl) 25 mg PO DAILY [facility] Last Admin: 08/08/18 09:19 Dose: 25 mg Morphine Sulfate (Morphine) 2 mg IVP Q4 PRN PRN Reason: Pain, severe (8-10) Ondansetron HCl (Zofran Inj) 4 mg IVP Q6 PRN PRN Reason: Nausea/Vomiting Oxycodone HCl (Oxycodone Immediate Release Tab) 5 mg PO Q4H PRN PRN Reason: Pain, moderate (4-7) Last Admin: 08/08/18 13:36 Dose: 5 mg Pravastatin Sodium (Pravachol) 20 mg PO HS [facility] Last Admin: 08/07/18 21:22 Dose: 20 mg - Labs Labs: 08/07/18 06:50 08/06/18 05:50 PT 13.7 Seconds (9.8-13.1) H 08/07/18 07:30 INR 1.2 08/07/18 07:30 - Respiratory Exam Respiratory Exam: Clear to Ausculation Bilateral - Cardiovascular Exam Cardiovascular Exam: REGULAR RHYTHM, +S1, +S2 Assessment and Plan - Assessment and Plan (Free Text) Assessment: RIGHT TKR HYPERTENSION HYPERLIPIDEMIA DM Plan: CONTINUE LOSARTAN, METOROLOL, PRAVACHOL, LOVENOX AND METFORMEN FOR REHAB
[2018-08-08] MEDS: Pravastatin Sodium 20 MG TAB PO SCH (21:15)
[2018-08-09] MEDS: Insulin Regular 100 units/ml SC SCH ×2 (08:28→12:00)
[2018-08-09] MEDS: Enoxaparin 40 mg Syringe SC SCH (08:58)
[2018-08-09] MEDS: Metoprolol Succinate 25 mg XL Tab PO SCH (08:59)
[2018-08-09 09:33] LABS: HEMOGLOBIN 10.5 g/dL (12.0-16.0); MEAN CELL VOLUME 87.5 fl (81.0-99.0); MEAN CORPUSCULAR HEMOGLOBIN 29.6 pg (27.0-31.0); MEAN CORPUSCULAR HGB CONC 33.9 g/dL (33.0-37.0); RBC 3.54 Mil/uL (3.80-5.20); RED CELL DISTRIBUTION WIDTH 13.4 % (11.5-14.5)
--- NOTE | 2018-08-09 10:14 | CP.PCM.PN ---
Subjective - Date & Time of Evaluation Date of Evaluation: 08/09/18 Time of Evaluation: 08:00 - Subjective Subjective: Patient seen and examined at bedside comfortable. Pain well controlled. Tolerating PT well. No new complaints. Objective - Vital Signs/Intake and Output Vital Signs (last 24 hours): Temp Pulse Resp BP Pulse Ox 98.5 F 86 19 154/92 H 98 08/09/18 08:08 08/09/18 08:59 08/09/18 08:08 08/09/18 08:59 08/09/18 08:08 - Medications Medications: Current Medications Acetaminophen (Tylenol 325mg Tab) 650 mg PO Q4 PRN PRN Reason: Fever >100.4 F Bisacodyl (Dulcolax) 10 mg PO HS PRN PRN Reason: Constipation Dextrose (Dextrose 50% Inj) 0 ml IV STAT PRN; Protocol PRN Reason: Hypoglycemia Protocol Dextrose (Glutose 15) 0 gm PO ONCE PRN; Protocol PRN Reason: Hypoglycemia Protocol Docusate Sodium (Colace) 100 mg PO BID [facility] Last Admin: 08/09/18 08:58 Dose: 100 mg Enoxaparin Sodium (Lovenox) 40 mg SC DAILY [facility]; Protocol Last Admin: 08/09/18 08:58 Dose: 40 mg Glucagon (Glucagen Diagnostic Kit) 0 mg IM STAT PRN; Protocol PRN Reason: Hypoglycemia Protocol Insulin Human Regular (Humulin R) 0 units SC [facility]; Protocol Last Admin: 08/09/18 08:28 Dose: Not Given Losartan Potassium (Cozaar) 100 mg PO DAILY [facility] Last Admin: 08/09/18 08:58 Dose: 100 mg Metformin HCl (Glucophage) 500 mg PO BID [facility] Last Admin: 08/09/18 08:58 Dose: 500 mg Metoprolol Succinate (Toprol Xl) 25 mg PO DAILY [facility] Last Admin: 08/09/18 08:59 Dose: 25 mg Morphine Sulfate (Morphine) 2 mg IVP Q4 PRN PRN Reason: Pain, severe (8-10) Ondansetron HCl (Zofran Inj) 4 mg IVP Q6 PRN PRN Reason: Nausea/Vomiting Oxycodone HCl (Oxycodone Immediate Release Tab) 5 mg PO Q4H PRN PRN Reason: Pain, moderate (4-7) Last Admin: 08/08/18 13:36 Dose: 5 mg Pravastatin Sodium (Pravachol) 20 mg PO HS [facility] Last Admin: 08/08/18 21:15 Dose: 20 mg - Labs Labs: 08/09/18 09:07 08/06/18 05:50 PT 13.7 Seconds (9.8-13.1) H 08/07/18 07:30 INR 1.2 08/07/18 07:30 - Extremities Exam Additional comments: R knee: Dressings CDI drain site CDI Incision CDI with yordy sensation intact SP/DP/TN motor intact EHL/FHL/TA/G pedal pulse intact Calves soft NT b/l Assessment and Plan (1) Primary osteoarthritis of right knee Assessment & Plan: POD#4 s/p R TKA -Dressings changed -knee imm/CPM as per order -PT/OT -DVT ppx -orthopedically stable for d/c to [facility] today -above d/w Dr. Velasco in agreement Status: Acute
--- NOTE | 2018-08-09 10:20 | CP.PCM.PN ---
Subjective - Date & Time of Evaluation Date of Evaluation: 08/09/18 Time of Evaluation: 08:00 - Subjective Subjective: NO CHEST PAIN OR SOB Objective - Vital Signs/Intake and Output Vital Signs (last 24 hours): Temp Pulse Resp BP Pulse Ox 98.5 F 86 19 154/92 H 98 08/09/18 08:08 08/09/18 08:59 08/09/18 08:08 08/09/18 08:59 08/09/18 08:08 - Medications Medications: Current Medications Acetaminophen (Tylenol 325mg Tab) 650 mg PO Q4 PRN PRN Reason: Fever >100.4 F Bisacodyl (Dulcolax) 10 mg PO HS PRN PRN Reason: Constipation Dextrose (Dextrose 50% Inj) 0 ml IV STAT PRN; Protocol PRN Reason: Hypoglycemia Protocol Dextrose (Glutose 15) 0 gm PO ONCE PRN; Protocol PRN Reason: Hypoglycemia Protocol Docusate Sodium (Colace) 100 mg PO BID [facility] Last Admin: 08/09/18 08:58 Dose: 100 mg Enoxaparin Sodium (Lovenox) 40 mg SC DAILY [facility]; Protocol Last Admin: 08/09/18 08:58 Dose: 40 mg Glucagon (Glucagen Diagnostic Kit) 0 mg IM STAT PRN; Protocol PRN Reason: Hypoglycemia Protocol Insulin Human Regular (Humulin R) 0 units SC [facility]; Protocol Last Admin: 08/09/18 08:28 Dose: Not Given Losartan Potassium (Cozaar) 100 mg PO DAILY [facility] Last Admin: 08/09/18 08:58 Dose: 100 mg Metformin HCl (Glucophage) 500 mg PO BID [facility] Last Admin: 08/09/18 08:58 Dose: 500 mg Metoprolol Succinate (Toprol Xl) 25 mg PO DAILY [facility] Last Admin: 08/09/18 08:59 Dose: 25 mg Morphine Sulfate (Morphine) 2 mg IVP Q4 PRN PRN Reason: Pain, severe (8-10) Ondansetron HCl (Zofran Inj) 4 mg IVP Q6 PRN PRN Reason: Nausea/Vomiting Oxycodone HCl (Oxycodone Immediate Release Tab) 5 mg PO Q4H PRN PRN Reason: Pain, moderate (4-7) Last Admin: 08/08/18 13:36 Dose: 5 mg Pravastatin Sodium (Pravachol) 20 mg PO [facility] Last Admin: 08/08/18 21:15 Dose: 20 mg - Labs Labs: 08/09/18 09:07 08/06/18 05:50 PT 13.7 Seconds (9.8-13.1) H 08/07/18 07:30 INR 1.2 08/07/18 07:30 - Respiratory Exam Respiratory Exam: Clear to Ausculation Bilateral - Cardiovascular Exam Cardiovascular Exam: REGULAR RHYTHM, +S1, +S2 Assessment and Plan - Assessment and Plan (Free Text) Assessment: RIGHT KNEE REPLACEMENT HYPERTENSION HYPERLIPIDEMIA Plan: CONTINUE LOSARTAN, METOPROLOL, PRAVASTATIN AND LOVENOX FOR REHA
--- NOTE | 2018-08-09 10:47 | CP.PCM.DIS ---
Provider - Provider Date of Admission: 08/05/18 07:49 Attending physician: Chika Palmer MD Consults: 08/05/18 07:49 Case Management Referral Routine Comment: Physician Instructions: patient vegetarian Reason For Exam: patient lives in [place], [place] request nearby Reason for Referral: Discharge Planning 08/05/18 07:59 Orthopedic Consult Routine Comment: Consulting Provider: Noe Velasco III Consulting Physician: Noe Velasco III Reason for Consult: TKR 08/05/18 11:09 Cardiology Consult Routine Comment: Consulting Provider: Richardson Zarco Consulting Physician: Richardson Zarco Reason for Consult: postop cardiac mgmt Time Spent in preparation of Discharge (in minutes): 30 Hospital Course - Lab Results Lab Results: Most Recent Lab Values WBC 8.0 K/uL (4.8-10.8) 08/09/18 09:07 RBC 3.54 Mil/uL (3.80-5.20) L 08/09/18 09:07 Hgb 10.5 g/dL (12.0-16.0) L 08/09/18 09:07 Hct 31.0 % (34.0-47.0) L 08/09/18 09:07 MCV 87.5 fl (81.0-99.0) 08/09/18 09:07 MCH 29.6 pg (27.0-31.0) 08/09/18 09:07 MCHC 33.9 g/dL (33.0-37.0) 08/09/18 09:07 RDW 13.4 % (11.5-14.5) 08/09/18 09:07 Plt Count 279 K/uL (130-400) 08/09/18 09:07 MPV 9.6 fl (7.2-11.7) 08/05/18 07:20 Neut % (Auto) 65.9 % (50.0-75.0) 08/05/18 07:20 Lymph % (Auto) 24.3 % (20.0-40.0) 08/05/18 07:20 [place] % (Auto) 7.7 % (0.0-10.0) 08/05/18 07:20 Eos % (Auto) 1.4 % (0.0-4.0) 08/05/18 07:20 Baso % (Auto) 0.7 % (0.0-2.0) 08/05/18 07:20 Neut # (Auto) 4.1 K/uL (1.8-7.0) 08/05/18 07:20 Lymph # (Auto) 1.5 K/uL (1.0-4.3) 08/05/18 07:20 [place] # (Auto) 0.5 K/uL (0.0-0.8) 08/05/18 07:20 Eos # (Auto) 0.1 K/uL (0.0-0.7) 08/05/18 07:20 Baso # (Auto) 0.0 K/uL (0.0-0.2) 08/05/18 07:20 PT 13.7 Seconds (9.8-13.1) H 08/07/18 07:30 INR 1.2 08/07/18 07:30 Sodium 135 mmol/l (132-148) 08/06/18 05:50 Potassium 3.9 MMOL/L (3.6-5.0) 08/06/18 05:50 Chloride 96 mmol/L (98-107) L 08/06/18 05:50 Carbon Dioxide 27 mmol/L (22-30) 08/06/18 05:50 Anion Gap 16 (10-20) 08/06/18 05:50 BUN 11 mg/dl (7-17) 08/06/18 05:50 Creatinine 0.6 mg/dl (0.7-1.2) L 08/06/18 05:50 Est GFR ( Amer) > 60 08/06/18 05:50 Est GFR (Non-Af Amer) > 60 08/06/18 05:50 POC Glucose (mg/dL) 121 mg/dL (65-110) H 08/09/18 05:17 Random Glucose 157 mg/dL (65-105) H 08/06/18 05:50 Calcium 8.6 mg/dL (8.4-10.2) 08/06/18 05:50 Blood Type O POSITIVE 08/05/18 07:15 Blood Type Confirm O POSITIVE 08/05/18 07:55 Antibody Screen Negative 08/05/18 07:15 Crossmatch See Detail 08/05/18 07:15 BBK History Checked No verified bt 08/05/18 07:15 - Hospital Course Hospital Course: 78 year old female patient, with PMHx of DM, HTN, HLD, osteoporosis admitted for right knee osteoarthritis. During hospital course, patient went to OR with Dr. Velasco for right total knee replacement (DOS: 08/05/2018). Pain was well controlled post-operatively, patient hemodynamically stable, and patient successfully participated in physical therapy. On day of discharge, patient stable for discharge to subacute rehab for continued rehabilitation/functional mobility. Patient to follow up with Dr. Velasco as an outpatient. 1. POD#[address] Velasco - Pain well controlled - C/w Incentive spirometry - Lovenox for DVT prophylaxis - [place] placement - Date & Time of H&P Date of H&P: 08/09/18 Time of H&P: 10:47 Discharge Exam - Head Exam Head Exam: ATRAUMATIC, NORMAL INSPECTION, NORMOCEPHALIC - Eye Exam Eye Exam: Normal appearance - Respiratory Exam Respiratory Exam: Clear to PA & Lateral, NORMAL BREATHING PATTERN, UNREMARKABLE - Cardiovascular Exam Cardiovascular Exam: REGULAR RHYTHM - GI/Abdominal Exam GI & Abdominal Exam: Normal Bowel Sounds, Unremarkable - Extremities Exam Additional comments: R knee dressing clean/dry/intact - Neurological Exam Neurological exam: Alert, Oriented x3 - Psychiatric Exam Psychiatric exam: Normal Affect - Skin Skin Exam: Warm Discharge Plan - Follow Up Plan Condition: GOOD Disposition: HOME/ ROUTINE Instructions: Total Knee Replacement (DC), Nerve Blocks Referrals: Noe Velasco III, MD [Staff Provider] - Bakari Seals MD [Medical Doctor] -
[2018-08-09] MEDS: oxyCODONE 5 mg Immediate Release Tab PO PRN (14:50)
[2018-08-09 15:53] VITALS: BP 157/90; PULSE 72; RESP 20; TEMP 98; O2SAT 99
== END 2018-08-09 16:20 | DRG 470 ==
LOC: H.OPSURG 06:22 → H.MEDSURG1 07:49
PROVIDERS: ADMIT Internal Medicine; ATTEND Internal Medicine
PROC: 0SRC069 Replacement of Right Knee Joint with Oxidized Zirconium on Polyethylene Synthetic Substitute, Cemented, Open Approach (ICD-10-PCS; principal; 2018-08-05 09:05)
PROC: 0SBC0ZZ Excision of Right Knee Joint, Open Approach (ICD-10-PCS; 2018-08-05 09:05)
PROC: 3E0T3BZ Introduction of Anesthetic Agent into Peripheral Nerves and Plexi, Percutaneous Approach (ICD-10-PCS; 2018-08-05 09:05)
DX: M17.11 Unilateral primary osteoarthritis, right knee (principal); D62 Acute posthemorrhagic anemia; E11.9 Type 2 diabetes mellitus without complications; M65.9 Synovitis and tenosynovitis, unspecified; M17.0 Bilateral primary osteoarthritis of knee; M81.0 Age-related osteoporosis without current pathological fracture; Z82.49 Family history of ischemic heart disease and other diseases of the circulatory system; Z83.3 Family history of diabetes mellitus; Z96.641 Presence of right artificial hip joint; Z96.651 Presence of right artificial knee joint; Z98.42 Cataract extraction status, left eye; M19.90 Unspecified osteoarthritis, unspecified site; E78.00 Pure hypercholesterolemia, unspecified; E78.5 Hyperlipidemia, unspecified; I10 Essential (primary) hypertension